=== PATIENT | male | born 1960 | race Caucasian/White ===

== ENCOUNTER → 2016-12-04 | Outpatient (CLI) | payer BC ==
[~2016-12-04] MED LIST: ATOR-22 PO; FLX10 PO; IRBE1TAB50 PO; VENL75CA73 PO
[2016-12-04 12:22] LABS: BASO % 0.7 %; BASO ABS # 0.04 K/uL (0-0.2); COMPLETE YES; EOS % 5.6 %; HEMATOCRIT 43.7 % (42-52); IG% 0.6 %; LYMPH ABS # 1.24 K/uL (1.2-3.4); MEAN CELL VOLUME 88.3 fL (80-100); MEAN CORPUSCULAR HEMOGLOBIN 31.3 pg (25-34); MEAN CORPUSCULAR HGB CONC 35.5 g/dl (32-36); MEAN PLATELET VOLUME 9.1 fL (7.4-10.4); MONO % 10.6 %; NEUT % 59.5 %; PLATELET COUNT 230 K/uL (130-400); RED BLOOD COUNT 4.95 M/uL (4.7-6.1)
[2016-12-04 12:23] LABS: ALT/SGPT 40 U/L (12-78); BLOOD UREA NITROGEN 19 mg/dl (7-18); BUN/CREATININE RATIO 14.7 (10-20); CALCIUM 8.9 mg/dl (8.5-10.1); CARBON DIOXIDE 28 mmol/L (21-32); CHLORIDE 105 mmol/L (98-107); CHOLESTEROL 159 mg/dl (0-200); GLUCOSE 88 mg/dl (70-99); POTASSIUM 4.2 mmol/L (3.5-5.1); SODIUM 142 mmol/L (136-145)
[2016-12-04 12:28] LABS: ALB/GLOB RATIO 1.4 (0.9-2); ALKALINE PHOSPHATASE 102 U/L (45-117); AST/SGOT 29 U/L (15-37); CHOLESTEROL/HDL RATIO 3.5; HDL CHOLESTEROL 46 mg/dl; LDL CHOLESTEROL CALCULATED 93 mg/dl; PROSTATE SPECIFIC ANTIGEN 0.555 ng/ml (0.000-4.000); TRIGLYCERIDES 100 mg/dl (0-150); VERY LOW DENSITY LIPOPROT CALC 20 mg/dl
== END | disposition home or self-care (01) ==
LOC: C.LABBFT 08:41
PROVIDERS: ATTEND Internal Medicine
DX: Z12.5 Encounter for screening for malignant neoplasm of prostate (principal); E78.5 Hyperlipidemia, unspecified; I10 Essential (primary) hypertension

== ENCOUNTER → 2016-12-18 | Outpatient (CLI) | payer BC ==
[~2016-12-18] VITALS: Ht 172.7 cm; Wt 93.8 kg
[2016-12-18 12:25] VITALS: BP 121/80; PULSE 76; Ht 172.7 cm; Wt 93.8 kg
== END | disposition home or self-care (01) ==
LOC: C.NEUR 11:58
PROVIDERS: ATTEND Internal Medicine Pulmonary Disease
DX: G47.33 Obstructive sleep apnea (adult) (pediatric) (principal); I10 Essential (primary) hypertension

== ENCOUNTER → 2017-05-21 | Outpatient (CLI) | payer BC | END | disposition home or self-care (01) | LOC: C.RDSM 12:12 | PROVIDERS: ATTEND Family Medicine Sports Medicine | DX: Z87.39 Personal history of other diseases of the musculoskeletal system and connective tissue (principal); M54.5 Low back pain; G89.29 Other chronic pain ==

== ENCOUNTER → 2017-10-14 | Outpatient (CLI) | payer BC ==
--- NOTE | 2017-10-14 07:22 | DIAGNOSTIC IMAGING REPORT ---
Study: Fusion CT sinuses HISTORY: Chronic sinusitis. FINDINGS: Operative changes consistent with prior bilateral antral window placement. Partial resection of the mid nasal turbinates of the right to lesser extent left. Partial bilateral ethmoidectomy. Trace mucosal thickening of the frontal sinuses as well as maxillary and residual posterior ethmoid sinuses. Sphenoid sinuses are clear. Orbital margins are intact. There is no bony destructive process. IMPRESSION: 1. Operative changes consistent with patent bilateral antral windows, partial ethmoidectomies and partial nasal turbinate resection, 2. Antral windows are patent, with only minimal scattered mucosal thickening throughout the sinuses as described. 3. No bony destructive process. Electronically signed by: Pritesh Solano M.D. 10/14/2017 7:20 AM Dictated Date/Time: 10/14/2017 7:16 AM
== END | disposition home or self-care (01) ==
LOC: C.CTS 06:56
DX: J32.9 Chronic sinusitis, unspecified (principal)

== ENCOUNTER → 2017-12-17 | Outpatient (CLI) | payer BC ==
[~2017-12-17] VITALS: Ht 172.7 cm; Wt 92.8 kg
[2017-12-17 12:11] VITALS: BP 123/87; PULSE 89; Ht 172.7 cm; Wt 92.8 kg
== END | disposition home or self-care (01) ==
LOC: C.NEUR 11:49
PROVIDERS: ATTEND Internal Medicine Pulmonary Disease
DX: G47.33 Obstructive sleep apnea (adult) (pediatric) (principal); J32.9 Chronic sinusitis, unspecified; I10 Essential (primary) hypertension